=== PATIENT | female | born 1945 | race Caucasian/White ===

== ENCOUNTER 2020-06-25 14:13 | Emergency (ER) | payer MEDICARE ==
--- NOTE | 2020-06-25 14:30 | ED.PDOC ---
History of Present Illness - General Stated Complaint: shortness of breath Time Seen by Provider: 06/25/20 14:14 Source: patient, RN notes reviewed, Vital Signs reviewed Exam Limitations: no limitations - History of Present Illness Initial Comments: 75 yo F with COPD on 2.5 L oxygen at home comes in with worsening shortness of breath x 6 weeks. no hx of PE or blood clots. Denies chest pain. Just rec ently moved here. no cp. Was being evaluated by pcp when noted low oxygen saturation so sent to ER. patient brought in on 4 L saturating 97%. Severity: moderate Improving Factors: rest Worsening Factors: movement Allergies/Adverse Reactions: Allergies NO KNOWN ALLERGY Allergy (Verified 06/25/20 14:35) Home Medications: Ambulatory Orders Cyclobenzaprine HCl [Flexeril] 20 mg PO NOON 06/25/20 Cyclobenzaprine HCl [Flexeril] 40 mg PO BEDTIME 06/25/20 Yqjrwjehxlz-Wefpyssejobz-Kgfzm [Trelegy Ellipta 100-62.5-25 Mcg/INH] 1 aer IN DAILY 06/25/20 Gabapentin 600 mg PO BEDTIME 06/25/20 Hydrocodone-Acetaminophen [Hydrocodone Bitartrate/AC 5-325 mg] 1 tab PO TID 06/25/20 Ibuprofen [Motrin] 600 mg PO TID 06/25/20 Levofloxacin [Levaquin] 750 mg PO DAILY #5 tab 06/25/20 Multiple Vitamins W/ Minerals [Centrum Adults] 1 tab PO DAILY 06/25/20 Prednisone 40 mg PO DAILY 5 Days #10 tab 06/25/20 Sertraline HCl [Sertraline Hydrochloride] 100 mg PO DAILY 06/25/20 Review of Systems - Review of Systems Constitutional: Denies: chills, fever EENTM: Denies: blurred vision, ear discharge, throat pain Respiratory: States: short of breath. Denies: cough Cardiology: Denies: chest pain, palpitations Gastrointestinal/Abdominal: Denies: abdominal pain, nausea, vomiting Genitourinary: Denies: discharge Musculoskeletal: Denies: back pain, muscle pain Skin: Denies: rash Neurological: Denies: headache, numbness, seizure Endocrine: Denies: unexplained weight gain, unexplained weight loss Hematologic/Lymphatic: Denies: blood clots, easy bleeding, easy bruising Past Medical History (General) - Patient Medical History Hx Seizures: No Hx Stroke: No Hx Dementia: No Hx of COPD: Yes Hx Cardiac Disorders: No Hx Congestive Heart Failure: No Hx Pacemaker: No Hx Diabetes: No Hx Gastroesophageal Reflux: No Hx Renal Disease: No Hx Cancer: Yes - ovarian Hx of HIV: No Surgical History: other - spinal surgery - Social History Hx Tobacco Use: Yes Years Tobacco Use: 30 Hx Alcohol Use: No Hx Substance Use: No Hx Substance Use Treatment: No Family Medical History - Family History Mother Living Status: Hx Family Congestive Heart Failure: Yes - father with cabg x 11 Hx Family Stroke: Yes Hx Cardiac Disease: Yes Hx Family Cancer: Yes - cervical, breast Physical Exam - Physical Exam General Appearance: Alert, Comfortable, No apparent distress, Well Developed, Well Groomed, Well Hydrated, Well Nourished Eyes, Ears, Nose, Throat Exam: PERRL/EOMI, normal ENT inspection, TMs normal Neck: non-tender, full range of motion, supple, normal inspection Respiratory: chest non-tender, lungs clear, normal breath sounds, no respiratory distress, no accessory muscle use Cardiovascular/Chest: normal peripheral pulses, regular rate, rhythm - rate 84 atrest, no edema, no gallop, no JVD, no murmur Peripheral Pulses: radial,right: 2+, radial,left: 2+ Gastrointestinal/Abdominal: normal bowel sounds, non tender, soft Rectal Exam: deferred Extremity: normal inspection, no calf tenderness Neurologic: no motor/sensory deficits, alert, normal mood/affect, oriented x 3 Skin Exam: normal color, warm/dry Progress - Progress Progress: partial ddx: covid, CHF, pneumonia, COPD exacerbation, PE. saturation was 77 when arrived, but not good wave form. and was walking to room not on oxygen. When she is placed on oxygen it is above 90%. PAtient given duoneb and prednisone x 1. 06/25/20 15:59 PSI score 64, no active cancer. 06/25/20 16:26 patient saturation 95% on home oxygen. ABG shows oxygen 92. The data reviewed when caring for this patient included: nurse notes, prior records, etc. The history and assessments from nurses notes were reviewed and considered, and the patient's home medication list was also reviewed and considered. My assessment and the results of testing completed here in the ED were discussed with the patient/family. All questions were answered, and they express understanding of my assessment and the plan. They have been instructed to return if their symptoms worsen, and have been asked to follow up with their primary care physician to recheck today's presenting complaint. Strict return precautions given. I have reviewed medication, benefits, alternatives and side effects. Patient decided to proceed with medication. Fior Viera DO #[id number] 06/25/20 16:26 06/25/20 17:53 - Results/Orders Results/Orders: 06/25/20 14:30 EKG STAT Laboratory Results WBC 15.5 K/mm3 (4.8-10.8) H 06/25/20 14:42 RBC 4.90 M/mm3 (4.20-5.40) 06/25/20 14:42 Hgb 13.2 gm/dL (12.0-16.0) 06/25/20 14:42 Hct 40.7 % (36.0-47.0) 06/25/20 14:42 MCV 83.0 fl (81.0-99.0) 06/25/20 14:42 MCH 26.9 pg (27.0-31.0) L 06/25/20 14:42 MCHC 32.4 g/dL (33.0-37.0) L 06/25/20 14:42 RDW 16.5 % (11.5-14.5) H 06/25/20 14:42 Plt Count 299 K/mm3 (130-400) 06/25/20 14:42 MPV 7.5 fl (7.40-10.4) 06/25/20 14:42 Absolute Neuts (auto) 13.30 K/uL (1.8-6.8) H 06/25/20 14:42 Absolute Lymphs (auto) 0.90 K/uL (1.0-3.4) L 06/25/20 14:42 Absolute Monos (auto) 1.10 K/uL (0.2-0.8) H 06/25/20 14:42 Absolute Eos (auto) 0.20 K/uL (0.0-0.4) 06/25/20 14:42 Absolute Basos (auto) 0.10 K/uL (0.0-0.1) 06/25/20 14:42 Neutrophils % 85.5 % (42.0-78.0) H 06/25/20 14:42 Lymphocytes % 6.0 % (20.0-50.0) L 06/25/20 14:42 Monocytes % 6.9 % (2.0-9.0) 06/25/20 14:42 Eosinophils % 1.2 % (1.0-5.0) 06/25/20 14:42 Basophils % 0.4 % (0.0-2.0) 06/25/20 14:42 PT 10.7 SECONDS (9.0-10.9) 06/25/20 14:42 INR 1.08 (0.9-1.15) 06/25/20 14:42 PTT (SP) 29.6 SECONDS (21.8-31.6) 06/25/20 14:42 D-Dimer, Quantitative 451.0 ng/ml (131-400) H 06/25/20 14:35 pCO2 47 mmHg (32-45) H 06/25/20 14:26 pO2 92 mmHg (83-108) 06/25/20 14:26 HCO3 27.7 mmol/L 06/25/20 14:26 ABG pH 7.381 (7.35-7.45) 06/25/20 14:26 ABG O2 Saturation 97.0 % (95.0-99.0) 06/25/20 14:26 ABG Base Excess 1.9 mmol/L 06/25/20 14:26 ABG Deoxyhemoglobin 3.0 % (0.0-5.0) 06/25/20 14:26 Oxyhemoglobin % 95.6 % (94.0-98.0) 06/25/20 14:26 Carboxyhemoglobin % 0.8 % (0.5-1.5) 06/25/20 14:26 Methemoglobin % Sat 0.6 % (0.0-1.5) 06/25/20 14:26 Calc Total Hemoglobin 13.7 g/dL (12.0-16.0) 06/25/20 14:26 Sodium 133 mmol/L (135-145) L 06/25/20 14:42 Potassium 3.9 mmol/L (3.6-5.0) 06/25/20 14:42 Chloride 97 mmol/L (101-111) L 06/25/20 14:42 Carbon Dioxide 27 mmol/L (21-31) 06/25/20 14:42 Anion Gap 12.9 (12-18) 06/25/20 14:42 BUN 15 mg/dL (7-18) 06/25/20 14:42 Creatinine 0.86 mg/dL (0.6-1.3) 06/25/20 14:42 BUN/Creatinine Ratio 17.4 (10-20) 06/25/20 14:42 Random Glucose 106 mg/dL (70-105) H 06/25/20 14:42 Serum Osmolality 267.6 mOsm/L (275-295) L 06/25/20 14:42 Calcium 8.9 mg/dL (8.4-10.2) 06/25/20 14:42 Total Bilirubin 0.2 mg/dL (0.2-1.0) 06/25/20 14:42 AST 23 IU/L (10-42) 06/25/20 14:42 ALT 16 IU/L (10-60) 06/25/20 14:42 Alkaline Phosphatase 70 IU/L (42-121) 06/25/20 14:42 Troponin I 0.02 ng/mL (0.01-0.05) 06/25/20 14:42 B-Natriuretic Peptide 87.0 pg/ml (0-100) 06/25/20 14:42 Serum Total Protein 7.6 gm/dL (6.4-8.2) 06/25/20 14:42 Albumin 3.6 g/dl (3.2-5.5) 06/25/20 14:42 Globulin 4.0 gm/dL (2.3-3.5) H 06/25/20 14:42 Albumin/Globulin Ratio 0.9 (1.1-1.9) L 06/25/20 14:42 - EKG/XRAY/CT EKG: Sinus Comments: poor r wave progression, incomplete rbbb, lad, no prior XRAY: chest - Reticular appearance of the interstitium may represent intersti tial lung disease and/or interstitial pneumonia. Departure - Departure Clinical Impression: COPD exacerbation, Chronic respiratory failure with hypoxia, on home O2 therapy Pneumonia Qualifiers: Pneumonia type: due to unspecified organism Laterality: bilateral Lung location: unspecified part of lung Qualified Code(s): J18.9 - Pneumonia, unspecified organism Time of Disposition: 16:00 Disposition: Discharge to Home or Self Care Departure Forms: ED Discharge - Pt. Copy, Patient Portal Self Enrollment Instructions: Pneumonia in Adults, Exacerbation of COPD (DC) Diet: resume usual diet Activity: increase activity as tolerated Referrals: Ji Stephenson MD [Primary Care Provider] - 1-2 Weeks Prescriptions: Levofloxacin [Levaquin] 750 mg PO DAILY #5 tab Prednisone 40 mg PO DAILY 5 Days #10 tab Home Medications: Ambulatory Orders Cyclobenzaprine HCl [Flexeril] 20 mg PO NOON 06/25/20 Cyclobenzaprine HCl [Flexeril] 40 mg PO BEDTIME 06/25/20 Autesgpskee-Nojnjzcqylek-Vppjq [Trelegy Ellipta 100-62.5-25 Mcg/INH] 1 aer IN DAILY 06/25/20 Gabapentin 600 mg PO BEDTIME 06/25/20 Hydrocodone-Acetaminophen [Hydrocodone Bitartrate/AC 5-325 mg] 1 tab PO TID 06/25/20 Ibuprofen [Motrin] 600 mg PO TID 06/25/20 Levofloxacin [Levaquin] 750 mg PO DAILY #5 tab 06/25/20 Multiple Vitamins W/ Minerals [Centrum Adults] 1 tab PO DAILY 06/25/20 Prednisone 40 mg PO DAILY 5 Days #10 tab 06/25/20 Sertraline HCl [Sertraline Hydrochloride] 100 mg PO DAILY 06/25/20
--- NOTE | 2020-06-25 15:20 | RAD ---
Procedure: XR CHEST 1 VIEW Exam Date: 06/25/2020 Ordering Provider: Fior Viera Clinical Indication: short of breath Comparison: None Findings: Heart is not enlarged. Aortic calcification. Reticulated appearance of the interstitium bilaterally which may represent interstitial lung disease and/or interstitial pneumonia. No pleural effusion. No pneumothorax. No acute osseous abnormality. Impression: 1. Reticular appearance of the interstitium may represent interstitial lung disease and/or interstitial pneumonia. Electronically signed by: Jorgito Enciso MD 06/25/2020 3:18 PM [facility]
[2020-06-25] MEDS ORDERED: IPRATROPIUM/ALBUTEROL 3 ML VIAL NEB ONE (15:40)
[2020-06-25] MEDS ORDERED: predniSONE 20 MG TAB PO ONE (16:03)
[2020-06-25 16:44] VITALS: BP 159/82; TEMP 97.5; O2SAT 92
== END 2020-06-25 16:44 | disposition home or self-care (01) ==
LOC: ER 14:13
DX: J44.1 Chronic obstructive pulmonary disease with (acute) exacerbation (principal); J18.9 Pneumonia, unspecified organism; J96.11 Chronic respiratory failure with hypoxia; I45.10 Unspecified right bundle-branch block; Z20.822 Contact with and (suspected) exposure to COVID-19; Z99.81 Dependence on supplemental oxygen; Z85.43 Personal history of malignant neoplasm of ovary; Z87.891 Personal history of nicotine dependence; Z79.899 Other long term (current) drug therapy
CPT/HCPCS: 36415; 71045; 80053; 83880; 84484; 85025; 85379; 85610; 85730; 87635; 93005; 94640; J7512; J7620